=== PATIENT | male | born 1965 | race Caucasian/White ===

== ENCOUNTER 2020-07-31 07:41 | Day surgery (SDC) | payer BC ==
[~2020-07-31] VITALS: Ht 175.3 cm; Wt 99.6 kg
[~2020-07-31 07:41] MED LIST: no home meds
[2020-07-31] MEDS ORDERED: LIPITOR20 MG PO (07:50)
[2020-07-31] MEDS ORDERED: VITAMIN D31000 I1 PO (07:51)
[2020-07-31 08:11] VITALS: BP 127/83; PULSE 74; TEMP 98.5
[2020-07-31 09:40] VITALS: BP 121/80; PULSE 72; TEMP 97.4
[2020-07-31 09:45] VITALS: BP 114/78; PULSE 70
--- NOTE | 2020-07-31 09:47 | NUR ---
PT RETURNED FROM [facility] PROCEDURE ROOM PER CART INTO BAY#3. PT DENIES PAIN OR NAUSEA AT THIS TIME. REQUESTS CHOCOLATE PUDDING AND WATER. WILL CONTINUE TO MONITOR.
--- NOTE | 2020-07-31 10:01 | NUR ---
PT A/OX3. TOLERATING WATER AND CHOCOLATE PUDDING. LUNGS CLEAR, HRR, BOWEL SOUNDS PRESENT. DENIES PAIN OR NAUSEA. WILL CONT TO MONITOR.
[2020-07-31 10:03] VITALS: BP 133/86; PULSE 71
--- NOTE | 2020-07-31 10:47 | NUR ---
IV DC'D, PT TOLERATED WELL. DC INSTRUCTIONS GIVEN, PT VOICES UNDERSTANDING. PT DISMISSED PER WC TO FAMILY VEHICLE. DRIVING.
== END 2020-07-31 10:25 | disposition home or self-care (01) ==
LOC: SDCO 07:41
DX: Z12.11 Encounter for screening for malignant neoplasm of colon (principal); D12.5 Benign neoplasm of sigmoid colon; Z80.0 Family history of malignant neoplasm of digestive organs; E78.5 Hyperlipidemia, unspecified; M19.90 Unspecified osteoarthritis, unspecified site
CPT/HCPCS: J2704; J7120